=== PATIENT | female | born 1930 | race Caucasian/White ===

== ENCOUNTER 2020-05-21 10:34 | Day surgery (SDC) | payer OTHER ==
--- NOTE | 2020-05-17 13:15 | RAD REPORT ---
EXAM DESCRIPTION: RAD - Chest Pa And Lat (2 Views) - 05/17/2020 1:08 pm CLINICAL HISTORY: preop Chest pain. COMPARISON: Chest Pa And Lat (2 Views) dated 01/27/2018; Chest Single View dated 04/07/2017 FINDINGS: The lungs are emphysematous but clear. The heart is upper limit of normal in size. No disp laced fractures. IMPRESSION: COPD.
[2020-05-17 14:45] LABS: Absolute Lymphocytes (CBC) 1.7 K/uL (0.7-4.9); Basophils % 1.2 % (0-1.3); Hematocrit 36.9 % (36.0-45.0); Lymphocytes % 24.4 % (15.3-44.8); MPV 9.8 fL (7.6-11.3); RBC Red Blood Cell Count 4.04 M/uL (3.86-4.86)
[2020-05-17 14:48] LABS: Potassium 3.9 mmol/L (3.5-5.1); Protime INR 1.01
[2020-05-21] MEDS ORDERED: NA CHLORIDE 0.9% 500 ML ONE ×2 (11:39→17:05)
[2020-05-21 11:45] VITALS: TEMP 96.2
[2020-05-21] MEDS ORDERED: HEPA 1000U/500MLS 2,000 UNIT/1,000 ML BAG IV ONE (15:57)
[2020-05-21] MEDS ORDERED: ATROPINE SULF 1 MG/10 ML SYR IV ONE (16:12)
[2020-05-21] MEDS ORDERED: NA CHLORIDE 0.9% 100 ML IV ONE (16:12)
[2020-05-21] MEDS ORDERED: HEPARIN 5000 UNIT/ML 1 ML VIAL ONE (16:14)
[2020-05-21] MEDS ORDERED: MIDAZOLAM HCL 2 MG/2 ML INJ ONE (16:14)
[2020-05-21] MEDS ORDERED: FENTANYL CITR 100 MCG/2 ML ONE (16:15)
[2020-05-21] MEDS ORDERED: VERAPAMIL HCL 10 MG/4 ML VIAL IV ONE (16:15)
[2020-05-21] MEDS ORDERED: HEPARIN 10,000 UNIT/10 ML VIAL IV ONE (16:15)
[2020-05-21 17:20] LABS: Arterial Blood Carboxyhemoglob 1.2 % (0-1.5); Blood Gas Oxyhemoglobin 69.8 % (94-97); Blood O2 Saturation 71.4 % (92-98.5)
[2020-05-21 20:01] VITALS: BP 133/66; O2SAT 98
--- NOTE | 2020-05-21 22:38 | OP ---
Date of Procedure: 05/21/2020 Surgeon: HUSAM AGUILLON Procedure Performed: 1.Selective coronary angiogram. 2.Left heart catheterization. 3.Right heart catheterization. Indications: Severe aortic valve stenosis. Access Site: 1.Radial artery 6-Chinese closed with TR band. 2.Right IJ 7-Chinese closed with manual pressure. Complications: None. Bleeding: Less than 10 mL. Description Of Procedure: After risks, benefits, and alternatives were explained, the patient agreed to the procedure and signed informed consent. The patient was brought into the cardiac catheterizat ion laboratory, prepped and draped in usual sterile fashion. Then we accessed right radial artery us ing a pediatric micropuncture kit and placed a 6-Chinese slender sheath and then accessed right IJ und er ultrasound guidance, and using a micropuncture kit, placed a 7-Chinese sheath and we took a balloon tipped [place] catheter 7-Chinese into the RA through the IJ recorded pressure waveform, and then the RV pressure waveform were recorded and then to the PA and recorded pressure waveform and then to the we dge recorded pressure on the waveform and took PA sat and cardiac output was obtained with the thermo dilution method and then took a 5-Chinese [place] catheter 4.0 into the aortic root through the right ra dial artery access, engaged left main and right coronary artery and took standard views and then cros sed the valve with a straight wire and advanced the [place] catheter into the LV, measured the LVEDP an d then pullback showed significant gradient more than 35 mmHg. Then we removed all the catheters and wires and removed the radial sheath and placed TR band and removed the IJ sheath. Manual pressure controlled the bleeding. Findings: 1.Left main is large and normal. 2.LAD, proximal 40% and mid 50%. No obstructive disease. Diagonal branches are normal. 3.Left circumflex large dominant. No significant disease. 4.RCA, small nondominant and no significant disease. The right heart catheterization, RA pressure w as 1. RV pressure was 29/2. PA pressure was 22/6. Pulmonary wedge pressure was 12, LV pressure was 17 mmHg, heart rate was 85. Cardiac output was 5 L/minute. Mean gradient upon pullback was 35 mmHg . Impression: 1.Nonobstructive coronary artery disease of the LAD. 2.Aortic valve stenosis, likely severe, was only 1 measurement, which was a pullback, showed a mean gradient of 35. Recommend further evaluation with simultaneous pressure of the LV and the aorta to d etermine the need for TAVR. SR/MODL Voice ID: [id number] Report ID: [id number]
== END 2020-05-21 20:22 | disposition home or self-care (01) ==
LOC: CCL 10:34
DX: I35.2 Nonrheumatic aortic (valve) stenosis with insufficiency (principal); I34.0 Nonrheumatic mitral (valve) insufficiency; I25.10 Atherosclerotic heart disease of native coronary artery without angina pectoris; I65.23 Occlusion and stenosis of bilateral carotid arteries; I10 Essential (primary) hypertension; I27.21 Secondary pulmonary arterial hypertension; Z20.822 Contact with and (suspected) exposure to COVID-19
CPT/HCPCS: 93005; 85025; 80048; 36415; 85610; 85730; 71046; 93460; 82805; U0003; C1893; J1644 ×2; J2250; J3010; J7040 ×2

== ENCOUNTER 2021-10-04 08:47 | Day surgery (SDC) | payer OTHER ==
[2021-10-02 14:17] LABS: SARS-CoV-2 Antigen Rapid Res Negative (Negative)
--- NOTE | 2021-10-02 15:42 | EKG ---
Test Date: 2021-10-02 Test Time: 13:02:18 [place] [employer] Order Clerk: DUSTY MEASUREMENT RESULTS: Intervals: Rate: 75 [place]: 114 QRSD: 76 QT: 366 QTc: 408 [place]: P: 75 [place]: 114 QRS: 66 T: 83 INTERPRETIVE STATEMENTS: Normal sinus rhythm Normal ECG Compared to ECG 05/17/2020 11:53:18 No significant changes Electronically Signed On 10-02-21 15:41:55 CDT by Ethan Shaw
[2021-10-04] MEDS ORDERED: Ringers Lactate 1,000 ML IV ONE (09:13)
[2021-10-04] MEDS ORDERED: LIDOCAINE 1% W/EPI 1:100,000 10 ML VIAL ONE (09:57)
[2021-10-04] MEDS ORDERED: FENTANYL CITR 100 MCG/2 ML ONE (10:12)
[2021-10-04] MEDS ORDERED: LIDOCAINE 1% MPF 5 ML VIAL ONE (10:12)
[2021-10-04] MEDS ORDERED: propofoL 200 MG/20 ML VIAL IV ONE (10:12)
[2021-10-04] MEDS ORDERED: ONDANSETRON 4 MG/2 ML VIAL ONE (10:14)
[2021-10-04] MEDS ORDERED: EPHEDRINE SULF 50 MG/ML VIAL ONE (10:54)
[2021-10-04] MEDS ORDERED: Phenylephrine HCl 10 MG/ML 1 ML VIAL ONE (11:16)
--- NOTE | 2021-10-04 11:54 | P.OP ---
Support Teacher: NONE,NONE Preoperative diagnosis: Squamous cell carcinoma nose Postoperative diagnosis: Same Primary procedure: Excision with frozen section Secondary procedure: Reconstruction via local tissue rearrangement Anesthesia: General via LMA Estimated blood loss: 10 to 15 mL Specimen: Right nose, frozen section, suture 12:00 Findings: Residual SCC in situ with negative peripheral and deep margins Operative Technique: After adequate plane of anesthesia, the skin of the nose was cleaned with alcohol and the prior biopsy site with a small area of associated crusting was identified. The area was injected with a total of 4 mL of 1% lidocaine with epinephrine and the face was cleaned with Betadine and draped in a sterile fashi on. The surgical marker was used to indicate a narrow margin around the biopsy site and adjacent scaled area. A 15 blade scalpel was used to incise full- thickness through the skin which was overlying the right tip of the nose. A suture was placed at this midportion of the superior aspect indicating 12:00. After sharply elevating the specimen from the underlying soft tissue, it was sent to pathology for frozen section analysis. Hemostasis was obtained using Bovie electrocautery and the surrounding tissues were carefully undermined using Bovie cautery and sharp scissors. Due to the need for reconstruction, a Ray-Viry was packed into the subcutaneous space until pathology results were available. The pathologist confirmed the deep and peripheral margins were negative and that there was focal areas of squamous cell in situ noted near the prior biopsy site. The defect was examined and measured 15 x 11 mm. After consideration of reconstruction options, I elected for a rhomboid rotational flap which was cut, rotated and secured with 4-0 Vicryl sutures. The skin was then closed in a running fashion using 5-0 fast absorbing gut sutures. The face was cleaned and dried. Triple antibiotic ointment was applied to the suture line and the procedure was concluded. All sponge counts were reported as correct at the conclusion of the case. The patient was awakened and transported to the recovery room in stable condition. Complications: None Implants: None Fluids & blood products: Crystalloid 750 mL Transferred to: Recovery Room Condition: Good
[2021-10-04 12:19] VITALS: TEMP 97.5
[2021-10-04 13:09] VITALS: BP 124/61; O2SAT 95
== END 2021-10-04 13:20 | disposition home or self-care (01) ==
LOC: OR 08:47
PROVIDERS: ATTEND Otolaryngology
PROC: 0HX1XZZ Transfer Face Skin, External Approach (ICD-10-PCS; 2021-10-04)
PROC: 0JB10ZX Excision of Face Subcutaneous Tissue and Fascia, Open Approach, Diagnostic (ICD-10-PCS; principal; 2021-10-04 10:30)
DX: D04.39 Carcinoma in situ of skin of other parts of face (principal); L57.0 Actinic keratosis; Z20.822 Contact with and (suspected) exposure to COVID-19; Z85.3 Personal history of malignant neoplasm of breast; I10 Essential (primary) hypertension
CPT/HCPCS: 93005; 36415; 88331; 88332; 88305; 87811; 11106; 14060; J2704; J2370; J3010; J7120; J2405